=== PATIENT | female | born 1955 | race Caucasian/White ===

== ENCOUNTER 2025-01-10 09:11 | Outpatient (CLI) | payer MEDICARE, SELFPAY ==
--- NOTE | ~2025-01-10 | MMUS_ITS ---
EXAMINATION: MM diagnostic pushpa BI w maik, US breast BI limited HISTORY: 69-year-old woman presents with pruritis of the nipple areolar complex bilaterally TECHNIQUE: Craniocaudal and mediolateral oblique 3-D tomosynthesis images were obtained and synthetic 2-D images were generated. CAD analysis was submitted and interpreted. High resolution limited bilateral breast ultrasound was performed, in the area of clinical concern. COMPARISON: 01/27/2024 BREAST PARENCHYMAL COMPOSITION:Not Dense. There are scattered areas of fibroglandular density. FINDINGS: MAMMOGRAPHIC FINDINGS: Redemonstration of intramammary lymph nodes within the upper outer right breast, unchanged from prior . Redemonstration of subtle subcentimeter low density foci, likely benign cysts within the retroareolar position of the right breast, unchanged from prior Punctate and bulky calcifications are detected bilaterally, stable and benign in appearance. Stable parenchymal pattern without suspicious microcalcifications, architectural distortion, discrete masses or significant asymmetry. ULTRASOUND: At the 10 and 11:00 positions of the right breast the periareolar position are 2 well-circumscribed a nechoic avascular structures, measuring 3.0 x 2.8 x 4.0 mm and 4.9 x 3.1 x 4.5 mm, consistent with si mple cysts for which no further follow-up is needed. Multiple minimally dilated tubular structures are identified within the bilateral retroareolar breast tissue, without internal debris or vascularity consistent with mild ductal ectasia. Sonographic evaluation of the remainder of the retroareolar position of the bilateral breasts demonst rate benign fibroglandular elements without a cystic or solid lesion of concern. IMPRESSION: No mammographic/tomographic or sonographic evidence to suggest the presence of malignancy. Resumption of yearly screening mammography is recommended. BI-RADS Category 2: Benign finding(s). Reviewed, dictated and finalized at location A. IMPRESSION: No mammographic/tomographic or sonographic evidence to suggest the presence of malignancy. Resumption of yearly screening mammography is recommended. BI-RADS Category 2: Benign finding(s).
== END 2025-01-10 09:12 | disposition home or self-care (01) ==
LOC: MICIMG 09:13
PROVIDERS: PCP Nurse Practitioner; Visit Provider Nurse Practitioner
DX: N62 Hypertrophy of breast (principal); L29.9 Pruritus, unspecified
CPT/HCPCS: 76642; 77062; 77066; G0279